=== PATIENT | male | born 1950 | race African-American/Black ===

== ENCOUNTER 2020-07-31 15:50 | Emergency (ER) | payer MEDICARE, MEDICAID ==
[~2020-07-31] VITALS: Ht 177.8 cm; Wt 91.0 kg
[2020-07-31] MEDS ORDERED: LIDOCAINE HCL 1% 20ML VIAL (Pyxis) INJ INFIL NR (19:00)
[2020-07-31 19:25] LABS: CLARITY URINE CLOUDY (CLEAR); COLOR URINE YELLOW (YELLOW); KETONES URINE NEGATIVE (NEGATIVE); LEUKOCYTE ESTERASE URINE NEGATIVE (NEGATIVE); NITRITE URINE NEGATIVE (NEGATIVE); OCCULT BLOOD URINE NEGATIVE (NEGATIVE); PH URINE 6.5 (4.5-8.0); PROTEIN URINE NEGATIVE (NEGATIVE); SPECIFIC GRAVITY URINE 1.022 (1.005-1.030); UROBILINOGEN URINE 0.2 E.U./dL (0.2-1.0)
[2020-07-31 20:37] LABS: BASOPHILS % 0.3 % (0.0-2.0); CHLORIDE 107 mEq/L (98-107); EOSINOPHILS % 1.6 % (0.0-5.0); HEMATOCRIT. 36.6 % (42.0-52.0); LYMPHOCYTES % 19.5 % (20.0-50.0); MEAN CORPUSCULAR VOLUME 97.2 fL (80.0-94.0); MEAN PLATELET VOLUME 8.9 fl (7.4-10.4); MONOCYTES % 8.9 % (2.0-8.0); NEUTROPHILS % 69.7 % (40.0-76.0); PLATELET 230 x1000/uL (130-400); RED BLOOD CELL COUNT 3.76 mill/uL (4.7-6.1); RED CELL DISTRIBUTION WIDTH 14.3 % (11.6-14.6)
[2020-07-31] MEDS ORDERED: CEPHALEXIN 250MG CAPSULE PO NR (21:00)
[2020-07-31] MEDS ORDERED: CEPH250C2 MT (21:12)
[2020-07-31 23:00] VITALS: BP 156/94
== END 2020-07-31 23:28 | disposition home or self-care (01) ==
LOC: ER 15:50 → CANBEDREQ 22:30 → ER 23:28
DX: L03.116 Cellulitis of left lower limb (principal); L03.115 Cellulitis of right lower limb; D64.9 Anemia, unspecified; I10 Essential (primary) hypertension; E78.00 Pure hypercholesterolemia, unspecified
CPT/HCPCS: 36415; 71045; 73590; 80053; 81003; 83605; 84145; 85025; 85610; 87040; 87086; 93005; 93970; 99285; J3490